=== PATIENT | female | born 1985 | race African-American/Black ===

== ENCOUNTER 2016-10-16 20:50 | Emergency (ER) | payer OTHER ==
[~2016-10-16] VITALS: Ht 152.4 cm; Wt 77.1 kg
[~2016-10-16 20:50] MED LIST: COLACE 100 MG100 MG PO; DIABETA 5MG TABL5 MG; GLYBURIDE 2.52.5 MG PO; IBUPROFEN 600600 M1 PO; IRON325 PO; LORTAB 5 MG/5001 TA1; NORCO 10-325 T1 EACH PO; PEPCID20 MG PO; PRENATAL MULTI1 EAC2 PO
[2016-10-16] MEDS ORDERED: IBUPROFEN 600600 M1 PO (21:44)
[2016-10-16] MEDS ORDERED: FLEXERIL PO (21:44)
[2016-10-16 21:48] VITALS: BP 141/68
== END 2016-10-16 21:48 | disposition home or self-care (01) ==
LOC: ER 20:50
DX: S16.1XXA Strain of muscle, fascia and tendon at neck level, initial encounter (principal); E11.9 Type 2 diabetes mellitus without complications; F17.210 Nicotine dependence, cigarettes, uncomplicated; F10.99 Alcohol use, unspecified with unspecified alcohol-induced disorder; V89.2XXA Person injured in unspecified motor-vehicle accident, traffic, initial encounter; Y93.89 Activity, other specified; Y92.9 Unspecified place or not applicable; Y99.9 Unspecified external cause status

== ENCOUNTER 2017-02-14 17:48 | Emergency (ER) | payer OTHER ==
[~2017-02-14] VITALS: Ht 160 cm; Wt 78.5 kg
[~2017-02-14 17:48] MED LIST changes: +FLEXERIL PO
[2017-02-14 17:52] VITALS: BP 153/72
[2017-02-14] MEDS ORDERED: MOBIC15 MG PO (18:34)
== END 2017-02-14 18:59 | disposition home or self-care (01) ==
LOC: ER 17:48
DX: G56.22 Lesion of ulnar nerve, left upper limb (principal); E11.9 Type 2 diabetes mellitus without complications; F17.210 Nicotine dependence, cigarettes, uncomplicated; Z86.2 Personal history of diseases of the blood and blood-forming organs and certain disorders involving the immune mechanism

== ENCOUNTER 2017-02-17 13:37 | Emergency (ER) | payer OTHER ==
[~2017-02-17] VITALS: Ht 152.4 cm; Wt 99.8 kg
[~2017-02-17 13:37] MED LIST changes: +MOBIC15 MG PO
[2017-02-17] MEDS ORDERED: NORCO 5-325 TA1 EACH PO (14:16)
== END 2017-02-17 14:41 | disposition home or self-care (01) ==
LOC: ER 13:37
DX: G56.22 Lesion of ulnar nerve, left upper limb (principal); E11.9 Type 2 diabetes mellitus without complications; Z91.040 Latex allergy status; F17.210 Nicotine dependence, cigarettes, uncomplicated; F10.99 Alcohol use, unspecified with unspecified alcohol-induced disorder

== ENCOUNTER 2017-02-21 00:14 | Emergency (ER) | payer OTHER ==
[~2017-02-21] VITALS: Ht 195.6 cm; Wt 78.5 kg
[~2017-02-21 00:14] MED LIST changes: +NORCO 5-325 TA1 EACH PO
[2017-02-21] MEDS ORDERED: PREDNISONE 20 M20 MG PO (00:49)
[2017-02-21] MEDS ORDERED: NORCO 5-325 TA1 EACH PO (00:49)
[2017-02-21 00:58] VITALS: BP 128/80
== END 2017-02-21 00:59 | disposition home or self-care (01) ==
LOC: ER 00:14
DX: S50.12XA Contusion of left forearm, initial encounter (principal); M77.12 Lateral epicondylitis, left elbow; R20.2 Paresthesia of skin; E11.9 Type 2 diabetes mellitus without complications; F17.210 Nicotine dependence, cigarettes, uncomplicated; F10.99 Alcohol use, unspecified with unspecified alcohol-induced disorder; Z91.040 Latex allergy status; W22.8XXA Striking against or struck by other objects, initial encounter; Y93.89 Activity, other specified; Y92.89 Other specified places as the place of occurrence of the external cause; Y99.8 Other external cause status

== ENCOUNTER 2017-03-25 21:48 | Emergency (ER) | payer OTHER ==
[~2017-03-25] VITALS: Ht 152.4 cm; Wt 73.5 kg
[~2017-03-25 21:48] MED LIST changes: +PREDNISONE 20 M20 MG PO
[2017-03-25 22:20] LABS: ABSOLUTE NEUTROPHILS 4.8 thou/uL (1.4-8.2); BASOPHILS 0.9 % (0.0-2.0); EOSINOPHILS 2.8 % (0.0-3.0); HEMATOCRIT 28.1 % (37.0-47.0); HEMOGLOBIN 8.8 gm/dL (12.0-15.0); LYMPHOCYTES 29.2 % (24.0-44.0); MCH 23.6 pg (26.0-34.0); MCHC 31.5 g/dL (28.0-37.0); MCV 74.7 fL (80.0-100.0); MONOCYTES 4.2 % (1.0-8.0); PLATELET COUNT 281 thou/uL (150-400); POLYS 62.9 % (36.0-66.0); RBC 3.76 mil/uL (4.20-5.00); RDW 23.7 % (10.5-14.5); WBC 7.6 thou/uL (4.0-11.0)
[2017-03-25 22:21] LABS: MANUAL DIFF NO
[2017-03-25 22:37] LABS: CALCIUM 8.1 mg/dL (8.5-10.1); CREATININE 0.7 mg/dL (0.6-1.0); POTASSIUM 3.7 mmol/L (3.5-5.1)
[2017-03-25 23:46] VITALS: BP 172/90
== END 2017-03-25 23:47 | disposition home or self-care (01) ==
LOC: ER 21:48
PROVIDERS: Emergency Medicine
DX: N92.0 Excessive and frequent menstruation with regular cycle (principal); E11.9 Type 2 diabetes mellitus without complications; F17.210 Nicotine dependence, cigarettes, uncomplicated; F10.99 Alcohol use, unspecified with unspecified alcohol-induced disorder; Z91.040 Latex allergy status

== ENCOUNTER 2017-04-10 23:43 | Emergency (ER) | payer OTHER ==
[~2017-04-10] VITALS: Ht 152.4 cm; Wt 73.9 kg
[2017-04-11] MEDS ORDERED: BACTRIM DS TAB1 EAC1 PO (00:14)
[2017-04-11 00:17] VITALS: BP 143/83
== END 2017-04-11 00:22 | disposition home or self-care (01) ==
LOC: ER 23:43
DX: S70.362A Insect bite (nonvenomous), left thigh, initial encounter (principal); E11.9 Type 2 diabetes mellitus without complications; F17.210 Nicotine dependence, cigarettes, uncomplicated; F10.99 Alcohol use, unspecified with unspecified alcohol-induced disorder; Z91.040 Latex allergy status; W57.XXXA Bitten or stung by nonvenomous insect and other nonvenomous arthropods, initial encounter; Y93.89 Activity, other specified; Y92.89 Other specified places as the place of occurrence of the external cause; Y99.8 Other external cause status

== ENCOUNTER 2017-12-05 08:10 | Emergency (ER) | payer OTHER ==
[~2017-12-05] VITALS: Ht 152.4 cm; Wt 81.7 kg
[~2017-12-05 08:10] MED LIST changes: +BACTRIM DS TAB1 EAC1 PO; +BACTRIM DS TAB1 EACH PO; +KEFLEX500 M1 PO; +NAPROSYN500 MG PO; +SENNA-DOCUSATE1 EACH PO
[2017-12-05 08:57] LABS: ABSOLUTE NEUTROPHILS 6.6 thou/uL (1.4-8.2); BASOPHILS 0.6 % (0.0-2.0); EOSINOPHILS 1.1 % (0.0-3.0); HEMOGLOBIN 13.1 gm/dL (12.0-15.0); LYMPHOCYTES 28.4 % (24.0-44.0); MCH 30.1 pg (26.0-34.0); MCHC 33.7 g/dL (28.0-37.0); MCV 89.4 fL (80.0-100.0); MONOCYTES 4.7 % (1.0-8.0); PLATELET COUNT 342 thou/uL (150-400); POLYS 65.2 % (36.0-66.0); RBC 4.36 mil/uL (4.20-5.00); RDW 12.7 % (10.5-14.5); WBC 10.1 thou/uL (4.0-11.0)
[2017-12-05 08:57] LABS: URINE BILIRUBIN NEGATIVE (Negative); URINE BLOOD NEGATIVE (Negative); URINE CLARITY CLEAR; URINE COLOR YELLOW; URINE GLUCOSE-RANDOM* TRACE (Negative); URINE KETONES NEGATIVE (Negative); URINE LEUKOCYTES NEGATIVE (Negative); URINE NITRITE NEGATIVE (Negative); URINE PROTEIN (DIPSTICK) TRACE (Negative); URINE SPECIFIC GRAVITY 1.015 (1.005-1.035); URINE UROBILINOGEN 0.2 E.U./dl (0.2-1.0)
[2017-12-05 09:05] LABS: CALCIUM 8.9 mg/dL (8.5-10.1); CREATININE 0.7 mg/dL (0.6-1.0); POTASSIUM 3.4 mmol/L (3.5-5.1)
== END 2017-12-05 10:00 | disposition home or self-care (01) ==
LOC: ER 08:10
PROVIDERS: Emergency Medicine
DX: R51 Headache (principal); E11.9 Type 2 diabetes mellitus without complications; F17.210 Nicotine dependence, cigarettes, uncomplicated; F10.99 Alcohol use, unspecified with unspecified alcohol-induced disorder; Z90.710 Acquired absence of both cervix and uterus; Z86.2 Personal history of diseases of the blood and blood-forming organs and certain disorders involving the immune mechanism; Z91.040 Latex allergy status

== ENCOUNTER 2019-11-03 17:34 | Emergency (ER) | payer OTHER ==
[~2019-11-03] VITALS: Ht 152.4 cm; Wt 72.6 kg
[2019-11-03 18:57] LABS: URINE BILIRUBIN NEGATIVE (Negative); URINE BLOOD NEGATIVE (Negative); URINE CLARITY CLEAR; URINE COLOR YELLOW; URINE GLUCOSE-RANDOM* 3+ (Negative); URINE KETONES NEGATIVE (Negative); URINE LEUKOCYTES-REFLEX NEGATIVE (Negative); URINE NITRITE-REFLEX NEGATIVE (Negative); URINE PROTEIN (DIPSTICK) NEGATIVE (Negative); URINE UROBILINOGEN 0.2 E.U./dl (0.2-1.0)
[2019-11-03 20:31] VITALS: BP 158/97
== END 2019-11-03 20:30 | disposition home or self-care (01) ==
LOC: ER 17:34
PROVIDERS: Emergency Medicine
DX: M54.5 Low back pain (principal); M54.6 Pain in thoracic spine; E11.9 Type 2 diabetes mellitus without complications; F17.210 Nicotine dependence, cigarettes, uncomplicated; Z86.2 Personal history of diseases of the blood and blood-forming organs and certain disorders involving the immune mechanism; Z98.890 Other specified postprocedural states; Z90.710 Acquired absence of both cervix and uterus; Z91.040 Latex allergy status; Z88.8 Allergy status to other drugs, medicaments and biological substances

== ENCOUNTER 2019-11-24 22:57 | Emergency (ER) | payer OTHER ==
[~2019-11-24] VITALS: Ht 152.4 cm; Wt 72.6 kg
[2019-11-25] MEDS ORDERED: CYCLOBENZAPRINE5 MG PO (00:28)
[2019-11-25] MEDS ORDERED: MOBIC15 MG PO (00:28)
[2019-11-25 00:42] VITALS: BP 160/94
== END 2019-11-25 00:42 | disposition home or self-care (01) ==
LOC: ER 22:57
DX: M51.26 Other intervertebral disc displacement, lumbar region (principal); E11.9 Type 2 diabetes mellitus without complications; F17.210 Nicotine dependence, cigarettes, uncomplicated; Z88.8 Allergy status to other drugs, medicaments and biological substances; Z91.040 Latex allergy status; Z90.710 Acquired absence of both cervix and uterus; Z98.890 Other specified postprocedural states

== ENCOUNTER 2020-01-27 22:02 | Emergency (ER) | payer BC, OTHER ==
[~2020-01-27] VITALS: Ht 152.4 cm; Wt 73.5 kg
[~2020-01-27 22:02] MED LIST changes: +CYCLOBENZAPRINE5 MG PO
[2020-01-27] MEDS ORDERED: ACETAMINOPHEN PO (22:11)
[2020-01-27] MEDS ORDERED: IBUPROFEN PO (22:11)
[2020-01-28 00:22] VITALS: BP 132/68
[2020-01-29] MEDS ORDERED: FLEXERIL PO (20:21)
== END 2020-01-28 00:10 | disposition home or self-care (01) ==
LOC: ER 22:02
DX: M54.5 Low back pain (principal); R61 Generalized hyperhidrosis; R11.10 Vomiting, unspecified; E11.9 Type 2 diabetes mellitus without complications; F17.210 Nicotine dependence, cigarettes, uncomplicated; Z91.040 Latex allergy status; Z88.8 Allergy status to other drugs, medicaments and biological substances; Z90.710 Acquired absence of both cervix and uterus; Z98.890 Other specified postprocedural states

== ENCOUNTER 2020-01-29 19:16 | Emergency (ER) | payer BC, OTHER ==
[~2020-01-29] VITALS: Ht 152.4 cm; Wt 73.5 kg
[~2020-01-29 19:16] MED LIST changes: +ACETAMINOPHEN PO; +IBUPROFEN PO
[2020-01-29] MEDS ORDERED: FLEXERIL PO (20:21)
[2020-01-29 20:48] VITALS: BP 131/88
== END 2020-01-29 20:52 | disposition home or self-care (01) ==
LOC: ER 19:16
DX: M54.5 Low back pain (principal); E11.9 Type 2 diabetes mellitus without complications; F17.210 Nicotine dependence, cigarettes, uncomplicated; Z90.710 Acquired absence of both cervix and uterus; Z98.890 Other specified postprocedural states; Z86.2 Personal history of diseases of the blood and blood-forming organs and certain disorders involving the immune mechanism; Z91.040 Latex allergy status

== ENCOUNTER 2020-04-24 22:16 | Emergency (ER) | payer BC, OTHER ==
[~2020-04-24] VITALS: Ht 152.4 cm; Wt 74.4 kg
[2020-04-24] MEDS ORDERED: NEURONTIN 300M300 M2 PO (22:23)
[2020-04-25 02:00] VITALS: BP 145/88
--- NOTE | 2020-04-25 10:54 | EKG ---
[facility] [place] [address] ELECTROCARDIOGRAM REPORT Name: CASSIE DE LA CRUZ Room #: DEP [facility]#: [id number] Admission: 04/24/20 Attend Phys: Discharge: 04/25/20 Date of : 85 Report #: [id number] THIS REPORT FOR: cc: KULDEEP - Shreya family physician/PCP KULDEEP - No family physician/PCP Martin Humphreys MD [facility] THIS REPORT FOR: //name// [facility] ED Test Date: 2020-04-24 Test Time: 23:22:14 Pat Name: CASSIE DE LA CRUZ Department: Room: Gender: F [employer] Supervisor: FAHEEM : 1985 Requested By: Gideon Cantu Order Number: [id number] MD: Martin Humphreys Measurements Intervals [place] Rate: 70 P: 32 LA: 177 QRS: 35 QRSD: 100 T: -4 QT: 432 QTc: 467 Interpretive Statements Sinus rhythm Borderline T abnormalities, inferior leads Compared to ECG 03/16/2017 23:54:10 No significant changes Electronically Signed On 04-25-2020 10:53:57 CDT by Martin Humphreys [email or web address] <ELECTRONICALLY SIGNED> By: Martin Humphreys MD, [facility] 04/25/20 [id number] Martin Humphreys MD, [facility] /EPI
== END 2020-04-25 02:01 | disposition home or self-care (01) ==
LOC: ER 22:16
DX: I10 Essential (primary) hypertension (principal); E11.9 Type 2 diabetes mellitus without complications; F17.210 Nicotine dependence, cigarettes, uncomplicated; Z91.040 Latex allergy status; Z88.6 Allergy status to analgesic agent; Z79.899 Other long term (current) drug therapy; Z90.710 Acquired absence of both cervix and uterus; Z98.890 Other specified postprocedural states

== ENCOUNTER 2020-05-25 07:37 | Emergency (ER) | payer BC, OTHER ==
[~2020-05-25] VITALS: Ht 160 cm; Wt 74.8 kg
[~2020-05-25 07:37] MED LIST changes: +NEURONTIN 300M300 M2 PO
[2020-05-25 08:57] LABS: ABSOLUTE NEUTROPHILS 3.7 thou/uL (1.4-8.2); BASOPHILS 0.6 % (0.0-2.0); EOSINOPHILS 2.5 % (0.0-3.0); HEMATOCRIT 36.3 % (37.0-47.0); HEMOGLOBIN 12.3 gm/dL (12.0-15.0); MCH 31.1 pg (26.0-34.0); MCV 91.5 fL (80.0-100.0); MONOCYTES 7.5 % (1.0-8.0); PLATELET COUNT 301 thou/uL (150-400); POLYS 53.4 % (36.0-66.0); RBC 3.97 mil/uL (4.20-5.00); RDW 12.3 % (10.5-14.5); WBC 6.9 thou/uL (4.0-11.0)
[2020-05-25 09:06] LABS: CALCIUM 8.4 mg/dL (8.5-10.1); CREATININE 0.5 mg/dL (0.6-1.0); POTASSIUM 3.7 mmol/L (3.5-5.1)
[2020-05-25 10:40] VITALS: BP 171/90
== END 2020-05-25 10:41 | disposition home or self-care (01) ==
LOC: ER 07:37
PROVIDERS: Emergency Medicine
DX: R51 Headache (principal); R03.0 Elevated blood-pressure reading, without diagnosis of hypertension; R11.0 Nausea; E11.9 Type 2 diabetes mellitus without complications; F17.210 Nicotine dependence, cigarettes, uncomplicated; Z90.711 Acquired absence of uterus with remaining cervical stump; Z98.890 Other specified postprocedural states; Z79.899 Other long term (current) drug therapy; Z91.040 Latex allergy status; Z88.8 Allergy status to other drugs, medicaments and biological substances